=== PATIENT | male | born 1945 | race Caucasian/White ===

== ENCOUNTER 2020-04-23 14:22 | Emergency (ER) | payer MEDICARE, OTHER ==
[~2020-04-23] VITALS: Ht 187.9 cm; Wt 99.8 kg
[~2020-04-23 14:22] MED LIST: ASPI-587 PO; ATEN25TA PO; CIPR500T78 PO; FINA5TAB6 PO; IBUP200T48 PO; OMEP20TA2 PO; TRAM50TA2 PO
--- NOTE | 2020-04-23 15:04 | ED Upper Extremity ---
General Chief Complaint: Laceration Stated Complaint: LT THUMB LAC Nursing Triage Note: Patient reports he was using a table saw and cut the pad of his left thumb, bleeding controlled with pressure. Nursing Sepsis Screen: No Definite Risk Source: patient History of Present Illness Date Seen by Provider: Apr 23, 2020 Time Seen by Provider: 14:40 Initial Comments Patient is a 74-year-old right-handed male who presents with injury to left t humb pad. Patient has 2 deep ragged abrasion/lacerations to left thumb pad when it was caught in a band saw his prior to ED arrival. Tetanus is up-to-date. No other symptoms or complaints. Patient is a daily 81 mg aspirin but is any additional blood thinners. Onset: just prior to arrival Pain/Injury Location: left thumb Method of Injury: incised Modifying Factors: Improves With Other Allergies and Home Medications Allergies Coded Allergies: Sulfa (Sulfonamide Antibiotics) (Unverified Allergy, Unknown, RASH, 12/21/13) hydrocodone (Unverified Allergy, Unknown, NAUSEA, 12/21/13) latex (Unverified Allergy, Unknown, RASH, 12/21/13) Home Medications Atenolol 25 Mg Tablet, 25 MG PO DAILY, (Reported) Ciprofloxacin HCl 500 Mg Tablet, 500 MG PO DAILY, (Reported) Ibuprofen 200 Mg Tablet, 200 MG PO Q4H PRN for PAIN, (Reported) Omeprazole 20 Mg Tablet.dr, 20 MG PO DAILY, (Reported) Tramadol Hcl 50 Mg Tablet, 50 MG PO Q6H PRN for PAIN, (Reported) PRN PAIN Patient Home Medication List Home Medication List Reviewed: Yes Review of Systems Constitutional: no symptoms reported EENTM: no symptoms reported Respiratory: no symptoms reported Cardiovascular: no symptoms reported Gastrointestinal: no symptoms reported Musculoskeletal: no symptoms reported Skin: see HPI Psychiatric/Neurological: No Symptoms Reported All Other Systems Reviewed Negative Unless Noted: Yes Past Vokvuqz-Razjao-Onkjvz Hx Past Med/Social Hx: Reviewed Nursing Past Med/Soc Hx Patient Social History Alcohol Use: Denies Use Recreational Drug Use: No Smoking Status: Never a Smoker 2nd Hand Smoke Exposure: No Recent Foreign Travel: No Contact w/Someone Who Travel: No Recent Infectious Disease Expo: No Recent Hopitalizations: No Physical Abuse: No Sexual Abuse: No Mistreated: No Fear: No Immunizations Up To Date Date of Pneumonia Vaccine: Dec 24, 2011 Seasonal Allergies Seasonal Allergies: No Past Medical History Surgeries: Yes (BILAT HIP REPLACEMENTS, ) Respiratory: No Cardiac: Yes Hypertension Neurological: No Genitourinary: No Prostate Problems Gastrointestinal: Yes Gastroesophageal Reflux Musculoskeletal: Yes Arthritis Endocrine: No HEENT: No Cancer: No Psychosocial: No Integumentary: No Blood Disorders: No Adverse Reaction/Blood Tranf: No Family Medical History Alzheimer's disease 19 MOTHER Arthritis 19 MOTHER Cardiovascular disease 19 FATHER 19 MOTHER Dementia 19 MOTHER Diabetes mellitus 19 MOTHER Hypertension 19 MOTHER No Family History of: AIDS Asthma Cancer of mouth Colon cancer Completed stroke Drug abuse Dysphasia Kidney disease Myocardial infarction Osteoporosis Parkinson's disease Prostate cancer Psychosocial problem Respiratory disorder Seizure disorder Severe allergy Thyroid disease Tuberculosis Physical Exam Vital Signs Vital Signs - First Documented 04/23/20 14:23 Temp 36.7 Pulse 62 Resp 18 B/P (MAP) 172/95 (120) Pulse Ox 97 O2 Delivery Room Air Capillary Refill : Less Than 3 Seconds Height, Weight, BMI Height: 6'2.00" Weight: 214lbs. oz. 97.732913vd; 28.00 BMI Method: General Appearance: WD/WN HEENT: PERRL/EOMI Neck: full range of motion Cardiovascular: normal peripheral pulses Respiratory: lungs clear Back: normal inspection Shoulder: normal inspection Elbow/Forearm: normal inspection Wrist: Yes normal inspection Hand: Left (to deep abrasion/lacerations to left thumb pad. Both lacerations less than 1 cm. Do not involve the joint), abrasions Progress/Results/Core Measures Results/Orders Vital Signs/I&O 04/23/20 14:23 Temp 36.7 Pulse 62 Resp 18 B/P (MAP) 172/95 (120) Pulse Ox 97 O2 Delivery Room Air Blood Pressure Mean: 120 Departure Communication (Admissions) Wound repair procedure note: Location: Left thumb pad Finger tourniquet put into place. Wound cleanse please using copious tap water. Wound and dry, explored and closed with wound adhesive and bandaged applied. Tetanus status confirmed. Impression Primary Impression: Thumb laceration Disposition: 01 HOME, SELF-CARE Condition: Stable Departure-Patient Inst. Referrals: JACKIE MEDINA MD (PCP/Family) Primary Care Physician Patient Instructions: Laceration Repair With Glue (DC) Add. Discharge Instructions: Please keep wound clean and dry and avoid left hand/thumbs use. Return to the ED if signs of infection. All discharge instructions reviewed with patient and/or family. Voiced understanding. AFRICA LINDO DO Apr 23, 2020 15:04
[2020-04-23] MEDS ORDERED: TETANUS,DIPTH,PERTUSS P/F (BOOSTRIX) 0.5 ML VIAL IM ONE ×2 (15:16→15:30)
[2020-04-23 15:26] VITALS: BP 143/87
== END 2020-04-23 15:15 | disposition home or self-care (01) ==
LOC: EDUNIT# 14:22 → ER FS 14:23
DX: S61.012A Laceration without foreign body of left thumb without damage to nail, initial encounter (principal); K21.9 Gastro-esophageal reflux disease without esophagitis; I10 Essential (primary) hypertension; Z23 Encounter for immunization; Z88.2 Allergy status to sulfonamides; Z88.5 Allergy status to narcotic agent; Z91.040 Latex allergy status; Z82.49 Family history of ischemic heart disease and other diseases of the circulatory system; Z82.61 Family history of arthritis; Z83.3 Family history of diabetes mellitus; W31.2XXA Contact with powered woodworking and forming machines, initial encounter
CPT/HCPCS: 90715

== ENCOUNTER 2020-12-19 18:39 | Emergency (ER) | payer MEDICARE, OTHER ==
[~2020-12-19] VITALS: Ht 188 cm; Wt 96.2 kg
[2020-12-19] MEDS ORDERED: L.E.T. SOLUTION 3 ML SYR ONE (18:55)
[2020-12-19 19:03] VITALS: BP 195/104
--- NOTE | 2020-12-19 19:08 | ED Lower Extremity ---
General Chief Complaint: Laceration Stated Complaint: RT FOOT HEEL LAC Source: patient, family Exam Limitations: no limitations History of Present Illness Date Seen by Provider: Dec 19, 2020 Time Seen by Provider: 18:50 Initial Comments Here with report of bleeding from the right ankle. States he has area of dry skin to the medial aspect of the right ankle. He was walking around and the family noted that he had blood coming out of his shoe. When he stood there blood started to pool. They did take the shoe off and wrapped the wound and he came here for further evaluation. On arrival, he has Jordan wrap over paper towel dressings to area of medial right ankle. Bleeding controlled. Onset: just prior to arrival Method of Injury: unknown Modifying Factors: Improves With Rest, Improves With Other (dressing applied and resolved bleeding) Allergies and Home Medications Allergies Coded Allergies: Sulfa (Sulfonamide Antibiotics) (Unverified Allergy, Unknown, RASH, 12/21/13) hydrocodone (Unverified Allergy, Unknown, NAUSEA, 12/21/13) latex (Unverified Allergy, Unknown, RASH, 12/21/13) Patient Home Medication List Home Medication List Reviewed: Yes Atenolol (Tenormin 25 Mg) 25 Mg Tablet, 25 MG PO DAILY, (Reported) Entered as Reported by: RITO POLK on 12/21/13 1221 Ciprofloxacin HCl (Cipro) 500 Mg Tablet, 500 MG PO DAILY, (Reported) Entered as Reported by: RITO POLK on 12/21/13 1221 Ibuprofen (Ibuprofen) 200 Mg Tablet, 200 MG PO Q4H PRN for PAIN, (Reported) Entered as Reported by: ZE VANN on 12/24/13 0852 Omeprazole (Omeprazole) 20 Mg Tablet.dr, 20 MG PO DAILY, (Reported) Entered as Reported by: RITO POLK on 12/21/13 1221 Tramadol Hcl (Tramadol Hcl) 50 Mg Tablet, 50 MG PO Q6H PRN for PAIN, (Reported) Entered as Reported by: RITO POLK on 12/21/13 1221 Review of Systems Constitutional: No chills, No fever Respiratory: no symptoms reported Cardiovascular: no symptoms reported Skin: see HPI Psychiatric/Neurological: No Symptoms Reported Past Mofqlkc-Wiukxj-Revgbq Hx Patient Social History Tobacco Use?: No Substance use?: No Alcohol Use?: No Seasonal Allergies Seasonal Allergies: No Past Medical History Surgeries: Yes (BILAT HIP REPLACEMENTS, ) Orthopedic Respiratory: No Cardiac: Yes Hypertension Neurological: No Genitourinary: No Prostate Problems Gastrointestinal: Yes Gastroesophageal Reflux Musculoskeletal: Yes Arthritis Endocrine: No HEENT: No Cancer: No Psychosocial: No Integumentary: No Blood Disorders: No Adverse Reaction/Blood Tranf: No Family Medical History Reviewed Nursing Family Hx Alzheimer's disease 19 MOTHER Arthritis 19 MOTHER Cardiovascular disease 19 FATHER 19 MOTHER Dementia 19 MOTHER Diabetes mellitus 19 MOTHER Hypertension 19 MOTHER No Family History of: AIDS Asthma Cancer of mouth Colon cancer Completed stroke Drug abuse Dysphasia Kidney disease Myocardial infarction Osteoporosis Parkinson's disease Prostate cancer Psychosocial problem Respiratory disorder Seizure disorder Severe allergy Thyroid disease Tuberculosis Physical Exam Vital Signs Vital Signs - First Documented 12/19/20 12/19/20 19:03 19:46 Temp 36.6 Pulse 78 Resp 16 B/P (MAP) 195/104 (134) Pulse Ox 96 O2 Delivery Room Air Capillary Refill : Height, Weight, BMI Height: 6'2.00" Weight: 214lbs. oz. 97.402805ql; 28.00 BMI Method: General Appearance: WD/WN, no apparent distress Cardiovascular: regular rate, rhythm, no murmur Respiratory: lungs clear, normal breath sounds Ankles: right ankle other (Area of dry skin to medial ankle. Varicose veins noted. Site of bleeding controlled but overlies varicose vein. ) Neurologic/Psychiatric: alert, oriented x 3 Skin: normal color, warm/dry Progress/Results/Core Measures Results/Orders Medications Given in ED Current Medications Medications Dose Ordered Sig/Zhane Route Start Time Stop Time Status Last Admin Dose Admin Tetracaine/ Epinephrine/ Lidocaine 3 ml STK-MED ONCE .ROUTE 12/19/20 18:55 12/19/20 18:59 DC 12/19/20 19:00 3 ML Vital Signs/I&O 12/19/20 12/19/20 19:03 19:46 Temp 36.6 Pulse 78 66 Resp 16 16 B/P (MAP) 195/104 (134) Pulse Ox 96 O2 Delivery Room Air Room Air Progress Progress Note : Progress Note Seen and evaluated. Bleeding currently controlled. Concern for rebleed due to proximity of varicose vein. LET applied to area. We will use silver nitrate to area of concern to prevent rebleeding. This was discussed with the patient who prefers this approach. Discharged home after silver nitrate treatment. No rebleeding. Covered with antibiotic ointment and dressing and secured with Santiago gauze. Return precautions given. Patient verbalized understanding of ins tructions and agreement with plan. Departure Impression Primary Impression: Bleeding from varicose veins of right lower extremity Disposition: HOME, SELF-CARE Condition: Improved Departure-Patient Inst. Decision time for Depature: 19:11 Referrals: JACKIE MEDINA MD (PCP/Family) Primary Care Physician Patient Instructions: Varicose Veins (DC) Add. Discharge Instructions: All discharge instructions reviewed with patient and/or family. Voiced understanding. Use antibiotic ointment to area of concern daily. Use dressing and wrap over wound for the next several days then as needed. Follow up with your doctor recheck and further evaluation this week. Return for worse pain, fever, s welling, bleeding or other concerns as needed. LOGAN RITTER MD Dec 19, 2020 19:08
== END 2020-12-19 19:46 | disposition home or self-care (01) ==
LOC: EDUNIT# 18:39 → ER FS 18:40
DX: I83.891 Varicose veins of right lower extremity with other complications (principal); I10 Essential (primary) hypertension; K21.9 Gastro-esophageal reflux disease without esophagitis; Z79.899 Other long term (current) drug therapy
CPT/HCPCS: 99281

== ENCOUNTER → 2021-12-21 | Outpatient (CLI) | payer MEDICARE, OTHER ==
--- NOTE | 2021-12-21 14:17 | Diagnostic Imaging Report ---
PROCEDURE: CT abdomen and pelvis without contrast. TECHNIQUE: Multiple contiguous axial images were obtained through the abdomen and pelvis without the use of intravenous contrast. Auto Exposure Controls were utilized during the CT exam to meet ALARA standards for radiation dose reduction. INDICATION: Nephrolithiasis. FINDINGS: There is some chronic appearing interstitial scarring and fibrosis in the lung bases. There is cardiomegaly. The liver is normal in size without focal lesions. There is cholelithiasis. There is no biliary ductal dilatation. Spleen is normal. Pancreas and adrenal glands are unremarkable. There are several tiny punctate nonobstructing stones in the right kidney. There is a left renal cyst. There is no obstructive uropathy. The aorta is nonaneurysmal. There is atherosclerotic calcification at the base of the celiac axis and superior mesenteric artery. The bowel gas pattern is nonspecific. There is atherosclerotic calcification of the aorta which is nonaneurysmal. There is no free air. There is no ascites. There are no focal inflammatory changes. There is some diverticular disease. 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 There are degenerative changes in the spine. IMPRESSION: Cardiomegaly and some interstitial scarring and fibrosis in the lung bases. Cholelithiasis. Several tiny punctate nonobstructing stones in the right kidney as well as a left renal cyst. Atherosclerotic calcification of the aorta as well as at the ostia of the celiac axis and superior mesenteric artery. Diverticular disease without evidence of diverticulitis. Dictated by: Dictated on workstation # [id number]
--- NOTE | 2021-12-21 18:48 | Diagnostic Imaging Report ---
INDICATION: Gross hematuria and history of nephrolithiasis. FINDINGS: There are degenerative changes in the spine. The bowel gas pattern is nonspecific. There are no abnormal abdominal calcifications. There are postsurgical changes of bilateral hip arthroplasty. IMPRESSION: Nonspecific bowel gas pattern. No obvious abnormal stones. Degenerative changes in the spine and previous bilateral hip arthroplasties. Dictated by: Dictated on workstation # [id number]
== END ==
LOC: RAD FS 12:35
PROVIDERS: ATTEND Urology
DX: N20.0 Calculus of kidney (principal); I51.7 Cardiomegaly; J84.10 Pulmonary fibrosis, unspecified; K80.20 Calculus of gallbladder without cholecystitis without obstruction; N28.1 Cyst of kidney, acquired; K57.90 Diverticulosis of intestine, part unspecified, without perforation or abscess without bleeding; I70.0 Atherosclerosis of aorta
CPT/HCPCS: 74018; 74176

== ENCOUNTER 2022-01-19 21:27 | Emergency (ER) | payer MEDICARE, OTHER ==
[~2022-01-19] VITALS: Ht 188 cm; Wt 100.0 kg
[2022-01-19 21:30] VITALS: BP 166/80
--- NOTE | 2022-01-19 21:41 | ED GI ---
General Stated Complaint: PAINFUL URINATION Source of Information: Patient Exam Limitations: No Limitations History of Present Illness Date Seen by Provider: Jan 19, 2022 Time Seen by Provider: 21:30 Initial Comments 76-year-old male with past medical history of hypertension and BPH coming in due to difficulty urinating. He has had increasing difficulty urinating over the past month and a half. Over dinner tonight he had to urinate 5 times in less than 40 minutes. Since being in the ER he has had to go twice in a few short minutes. He denies any real burning, just that he has the urge to continue to need to go. He does continue to get urine out every time he goes to the bathroom. He feels suprapubic pressure and discomfort which is constant, moderate, and slightly improved after urinating. Denies any fever, nausea, vomiting, flank pain, diarrhea, rash, or any other concerns. He does follow with Dr. Romano already for his prostate and has an appointment in a week and a half. Allergies and Home Medications Allergies Coded Allergies: Sulfa (Sulfonamide Antibiotics) (Unverified Allergy, Unknown, RASH, 12/21/13) hydrocodone (Unverified Allergy, Unknown, NAUSEA, 12/21/13) latex (Unverified Allergy, Unknown, RASH, 12/21/13) Patient Home Medication List Home Medication List Reviewed: Yes Atenolol (Tenormin 25 Mg) 25 Mg Tablet, 25 MG PO DAILY, (Reported) Entered as Reported by: RITO POLK on 12/21/13 1221 Ciprofloxacin HCl (Cipro) 500 Mg Tablet, 500 MG PO DAILY, (Reported) Entered as Reported by: RITO POLK on 12/21/13 1221 Ibuprofen (Ibuprofen) 200 Mg Tablet, 200 MG PO Q4H PRN for PAIN, (Reported) Entered as Reported by: ZE VANN on 12/24/13 0852 Omeprazole (Omeprazole) 20 Mg Tablet., 20 MG PO DAILY, (Reported) Entered as Reported by: RITO POLK on 12/21/13 1221 Tramadol Hcl (Tramadol Hcl) 50 Mg Tablet, 50 MG PO Q6H PRN for PAIN, (Reported) Entered as Reported by: RITO POLK on 12/21/13 1221 Review of Systems Review of Systems Constitutional: No fever EENTM: No Symptoms Reported Respiratory: No Symptoms Reported Cardiovascular: No Symptoms Reported Gastrointestinal: No Symptoms Reported Genitourinary: See HPI Musculoskeletal: no symptoms reported Skin: no symptoms reported Psychiatric/Neurological: No Symptoms Reported Endocrine: No Symptoms Reported Hematologic/Lymphatic: No Symptoms Reported All Other Systems Reviewed Negative Unless Noted: Yes Past Jwryixp-Cgvslm-Xdseac Hx Patient Social History Tobacco Use?: No Smoking Status: Former Smoker Immunizations Up To Date First/Initial COVID19 Vaccinat: 05/2020 Second COVID19 Vaccination Homero: 06/2020 Seasonal Allergies Seasonal Allergies: No Past Medical History Surgeries: Yes (BILAT HIP REPLACEMENTS, ) Orthopedic Respiratory: No Cardiac: Yes Hypertension Neurological: No Genitourinary: No Prostate Problems Gastrointestinal: Yes Gastroesophageal Reflux Musculoskeletal: Yes Arthritis Endocrine: No HEENT: No Cancer: No Psychosocial: No Integumentary: No Blood Disorders: No Adverse Reaction/Blood Tranf: No Family Medical History Alzheimer's disease 19 MOTHER Arthritis 19 MOTHER Cardiovascular disease 19 FATHER 19 MOTHER Dementia 19 MOTHER Diabetes mellitus 19 MOTHER Hypertension 19 MOTHER No Family History of: AIDS Asthma Cancer of mouth Colon cancer Completed stroke Drug abuse Dysphasia Kidney disease Myocardial infarction Osteoporosis Parkinson's disease Prostate cancer Psychosocial problem Respiratory disorder Seizure disorder Severe allergy Thyroid disease Tuberculosis Physical Exam Vital Signs Vital Signs - First Documented 01/19/22 21:30 Temp 36.8 Pulse 86 Resp 18 B/P (MAP) 166/80 (108) Capillary Refill : Height/Weight/BMI Height: 6'2.00" Weight: 214lbs. oz. 97.525698eq; 27.00 BMI Method: General Appearance: WD/WN, no apparent distress HEENT: PERRL/EOMI, normal ENT inspection, pharynx normal Neck: non-tender, full range of motion, supple, normal inspection Respiratory: chest non-tender, lungs clear, normal breath sounds, no respiratory distress, no accessory muscle use Cardiovascular: regular rate, rhythm, no edema, no murmur Gastrointestinal: normal bowel sounds, non tender, tenderness (suprapubic fullness and discomfort) Extremities: normal range of motion, non-tender, normal inspection, no pedal edema, no calf tenderness Back: normal inspection, no CVA tenderness Neurologic/Psychiatric: no motor/sensory deficits, alert, normal mood/affect Skin: normal color, warm/dry Lymphatic: no adenopathy Progress/Results/Core Measures Results/Orders Lab Results Laboratory Tests Test 01/19/22 21:38 Range/Units Urine Color YELLOW Urine Clarity SLIGHTLY CLOUDY Urine pH 5.5 5-9 Urine Specific [place] <=1.005 1.016-1.022 Urine Protein NEGATIVE NEGATIVE Urine Glucose (UA) NEGATIVE NEGATIVE Urine Ketones NEGATIVE NEGATIVE Urine Nitrite NEGATIVE NEGATIVE Urine Bilirubin NEGATIVE NEGATIVE Urine Urobilinogen 0.2 < = 1.0 MG/DL Urine Leukocyte Esterase 1+ H NEGATIVE Urine RBC (Auto) TRACE-I H NEGATIVE Urine RBC 0-2 /HPF Urine WBC 25-50 H /HPF Urine Squamous Epithelial Cells RARE /HPF Urine Crystals PRESENT H /LPF Urine Amorphous Sediment FEW CECE URATES H /LPF Urine Bacteria FEW H /HPF Urine Casts NONE /LPF Urine Mucus NEGATIVE /LPF Urine Culture Indicated YES My Orders Orders - JOE JARRETT MD Ua Culture If Indicated (01/19/22 21:31) Catheter(Urinary) Insert & Ass 03,15 (01/19/22 21:37) Lidocaine 2% (Urojet) (Xylocaine Urojet) (01/19/22 21:45) Urine Culture (01/19/22 21:38) Medications Given in ED Current Medications Medications Dose Ordered Sig/Zhane Route Start Time Stop Time Status Last Admin Dose Admin Lidocaine HCl 10 ml ONCE ONCE TOP 01/19/22 21:45 01/19/22 21:46 DC 01/19/22 21:54 10 ML Vital Signs/I&O 01/19/22 21:30 Temp 36.8 Pulse 86 Resp 18 B/P (MAP) 166/80 (108) Progress Progress Note : Progress Note 76-year-old male with above history coming in due to urinary urgency. ABCs were intact and vitals were stable on presentation. Physical exam with some suprapubic fullness and discomfort. Postvoid residual with over a liter of urine on ultrasound performed by me. Saldaña catheter was then placed and urinalysis was sent for evaluation. He has follow-up with the urologist already in just over a week. Of note, the patient's urinalysis did look potentially infectious. He recently started on Macrobid per Dr. Romano, so I will not change the prescription. Departure Impression Primary Impression: Urinary retention Additional Impression: Saldaña catheter in place Disposition: 01 HOME, SELF-CARE Condition: Improved Departure-Patient Inst. Decision time for Depature: 22:16 Referrals: JACKIE MEDINA MD (PCP/Family) Primary Care Physician VANNA ROMANO MD Patient Instructions: Urinary Retention (DC), How to Care for Your Saldaña Catheter, Male Add. Discharge Instructions: Follow-up with Dr. Romano in the next week or so to discuss how to get the Saldaña out and what you can do to prevent this from happening in the future. JOE JARRETT MD Jan 19, 2022 21:41
[2022-01-19 21:43] LABS: BILIRUBIN,URINE NEGATIVE (NEGATIVE); COLOR,URINE YELLOW; GLUCOSE, URINE (UA) NEGATIVE (NEGATIVE); KETONES,URINE NEGATIVE (NEGATIVE); LEUKOCYTE ESTERASE ,URINE 1+ (NEGATIVE); NITRITE,URINE NEGATIVE (NEGATIVE); PH,URINE 5.5 (5-9); PROTEIN,URINE NEGATIVE (NEGATIVE)
[2022-01-19] MEDS ORDERED: LIDOCAINE UROJET 2% GEL 10 ML PKG TOP ONE (21:45)
[2022-01-19 21:50] LABS: AMORPHOUS SEDIMENT,UR FEW AMOR URATES /LPF; BACTERIA,URINE FEW /HPF; CLARITY,URINE SLIGHTLY CLOUDY; RBC,URINE 0-2 /HPF; SQUAMOUS EPITHELIAL CELL,UR RARE /HPF; WBC,URINE 25-50 /HPF
== END 2022-01-19 22:31 | disposition home or self-care (01) ==
LOC: EDUNIT# 21:27 → ER FS 21:28
DX: R33.9 Retention of urine, unspecified (principal); Z46.6 Encounter for fitting and adjustment of urinary device; Z87.891 Personal history of nicotine dependence
CPT/HCPCS: 51702; 81000; 87088

== ENCOUNTER 2022-11-11 07:45 | Emergency (ER) | payer MEDICARE, OTHER ==
[~2022-11-11] VITALS: Ht 187.9 cm; Wt 98.6 kg
--- NOTE | 2022-11-11 08:00 | ED Fall/Injury ---
General Chief Complaint: Chest Wall Stated Complaint: LEFT SIDE RIBS Source: patient History of Present Illness Date Seen by Provider: Nov 11, 2022 Time Seen by Provider: 07:46 Initial Comments 77-year-old male presenting with complaints of pain to the left anterior lower ribs. He reports that on Saturday he was out watering the yard and slipped on a rock. He landed on the yard and had some pain to the left side. He thought that he was doing okay but then overnight he felt like something was moving and shifting in his ribs. He took some Tylenol around 330 this morning. He states if he is just sitting there the pain is a 0 but when he takes a deep breath, sneezes, coughs his pain shoots up at least to a 5 out of 10. He denies having any head injury or loss of consciousness. He does not feel short of breath. He denies any abdominal pain. No fever, chills, hemoptysis. Occurred: other (fell in yard on 11/07 while watering) Severity: moderate Injuries/Pain Location: chest (left anterior lower chest wall) Context: slipped Loss of Consciousness: no loss of consciousness Modifying Factors: Worse With Movement (deep breaths) Associated Symptoms (Fall): No Abdominal Pain, No Confusion, No Dizziness, No Headache, No Lightheadedness, No Muscle Spasms, No Nausea/Vomiting, No Neck Pain, No Ringing in Ears, No Seizures, No Shortness of Air, No Slurred Speech, No Trouble Walking, No Vision Changes Allergies and Home Medications Allergies Coded Allergies: Sulfa (Sulfonamide Antibiotics) (Unverified Allergy, Unknown, RASH, 12/21/13) hydrocodone (Unverified Allergy, Unknown, NAUSEA, 12/21/13) latex (Unverified Allergy, Unknown, RASH, 12/21/13) Patient Home Medication List Home Medication List Reviewed: Yes Atenolol (Tenormin 25 Mg) 25 Mg Tablet, 25 MG PO DAILY, (Reported) Entered as Reported by: RITO POLK on 12/21/13 1221 Ciprofloxacin HCl (Cipro) 500 Mg Tablet, 500 MG PO DAILY, (Reported) Entered as Reported by: RITO POLK on 12/21/13 1221 Ibuprofen (Ibuprofen) 200 Mg Tablet, 200 MG PO Q4H PRN for PAIN, (Reported) Entered as Reported by: ZE VANN on 12/24/13 0852 Omeprazole (Omeprazole) 20 Mg Tablet.dr, 20 MG PO DAILY, (Reported) Entered as Reported by: RITO POLK on 12/21/13 1221 Tramadol Hcl (Tramadol Hcl) 50 Mg Tablet, 50 MG PO Q6H PRN for PAIN, (Reported) Entered as Reported by: RITO POLK on 12/21/13 1221 Review of Systems Review of Systems Constitutional: No chills, No fever Eyes: No Symptoms Reported Ears, Nose, Mouth, Throat: no symptoms reported Respiratory: see HPI Cardiovascular: see HPI Gastrointestinal: no symptoms reported Genitourinary: no symptoms reported Musculoskeletal: see HPI Skin: No change in color Psychiatric/Neurological: No Symptoms Reported Past Hgfenbw-Svolms-Rdzcqt Hx Patient Social History Tobacco Use?: No Smoking Status: Former Smoker Use of E-Cig and/or Vaping dev: No Substance use?: No Alcohol Use?: No Immunizations Up To Date First/Initial COVID19 Vaccinat: 05/2020 Second COVID19 Vaccination Homero: 06/2020 Third COVID19 Vaccination Date: 05/2020 Seasonal Allergies Seasonal Allergies: No Past Medical History Surgery/Hospitalization HX: Hypertension, GERD, BPH Surgeries: Yes (BILAT HIP REPLACEMENTS, ) Orthopedic Respiratory: No Cardiac: Yes Hypertension Neurological: No Genitourinary: No Prostate Problems Gastrointestinal: Yes Gastroesophageal Reflux Musculoskeletal: Yes Arthritis Endocrine: No HEENT: No Cancer: No Psychosocial: No Integumentary: No Blood Disorders: No Adverse Reaction/Blood Tranf: No Family Medical History Alzheimer's disease 19 MOTHER Arthritis 19 MOTHER Cardiovascular disease 19 FATHER 19 MOTHER Dementia 19 MOTHER Diabetes mellitus 19 MOTHER Hypertension 19 MOTHER No Family History of: AIDS Asthma Cancer of mouth Colon cancer Completed stroke Drug abuse Dysphasia Kidney disease Myocardial infarction Osteoporosis Parkinson's disease Prostate cancer Psychosocial problem Respiratory disorder Seizure disorder Severe allergy Thyroid disease Tuberculosis Physical Exam Vital Signs Vital Signs - First Documented 11/11/22 07:48 Temp 36.4 Pulse 85 Resp 14 B/P (MAP) 175/86 (115) O2 Delivery Room Air Capillary Refill : Height, Weight, BMI Height: 6'2.00" Weight: 214lbs. oz. [id number]; 28.00 BMI Method: General Appearance: WD/WN, no apparent distress Cardiovascular: normal peripheral pulses, regular rate, rhythm Respiratory: No chest non-tender (tender to palpation left anterior lower ribs without crepitus or step off noted.); lungs clear, normal breath sounds, no respiratory distress, no accessory muscle use Gastrointestinal: normal bowel sounds, non tender, soft, no pulsatile mass Rectal: deferred Extremities: normal range of motion, non-tender, normal capillary refill Neurologic/Psychiatric: eye glass frame polisher II-XII nml as tested, no motor/sensory deficits, alert, normal mood/affect, oriented x 3 Skin: normal color, warm/dry; No ecchymosis [place] Coma Score Best Eye Response: (4) Open Spontaneously Best Verbal Response: (5) Oriented Best Motor Response: (6) Obeys Commands [place] Total: 15 Progress/Results/Core Measures Results/Orders My Orders Orders - SHAHAB MURPHY MD Ribs/Unilateral With Chest (11/11/22 07:54) Vital Signs/I&O 11/11/22 11/11/22 07:48 08:48 Temp 36.4 36.4 Pulse 85 85 Resp 14 14 B/P (MAP) 175/86 (115) 175/86 O2 Delivery Room Air Room Air Progress Progress Note #1: Progress Note Potential diagnosis of rib contusion, rib fracture, pneumothorax, hemothorax, musculoskeletal chest wall strain. As patient had taken some Tylenol for pain at 330 this morning and did not have pain and was he was doing deep breaths will defer additional pain medicine for now. Obtain rib and chest x-ray to look for signs of acute fracture or pathology with his lungs or ribs. Progress Note #2: Time: 08:09 Progress Note On my personal interpretation and review of the films of the left ribs and chest x-ray he has at least 1 rib fracture on the left side. It looks like the seventh rib had fracture with minimal separation. I did not appreciate a pneumothorax or hemothorax. Will counselling psychologist patient about lidocaine numbing patches and using Tylenol. Use a pillow to help splint to side so he can take deep breaths. Patient states he already has an incentive spirometer at home so encouraged him to use that to make sure he is taking deep breaths. Advised to use a pillow for something soft to help splint the side when he was using it to take deep breaths to help prevent pneumonia. Encouraged that he can take acetaminophen and/or ibuprofen if needed for pain as well as [id number] lidocaine numbing patches. Encouraged to check back with primary care for continued concerns. Counseled on follow-up and return precautions. Diagnostic Imaging Diagonstic Imaging: Xray Plain Films/CT/US/NM/MRI: chest (With left ribs) Comments [facility], [place] NAME: BRIANA BLANCO [facility] REC#: [id number] PT STATUS: REG ER : 1945 PHYSICIAN: SHAHAB MURPHY MD ADMIT DATE: 11/11/22/ER FS Signed Date of Exam:11/11/22 RIBS/UNILATERAL WITH CHEST Patient History: Fall. Left-sided rib pain.. Technique: 5 views of the chest and left ribs. Comparison: None. FINDINGS: The lung volumes are normal. No focal consolidation is seen. No large pleural effusion or pneumothorax is seen. The cardiomediastinal silhouette is normal in size and contour. There is calcified aortic atherosclerotic plaque. No acute osseous abnormality is seen. No acute displaced left-sided rib fractures. IMPRESSION: 1. No acute process in the chest. 2. No acute displaced left-sided rib fractures. Dictated by: Dictated on workstation # [id number] Dict: 11/11/22820 Trans: 11/11/22826 [facility] [id number] Interpreted by: EDVIN TALBOT DO Electronically signed by: EDVIN TALBOT DO 11/11/22826 ADDENDUM REPORT ADDENDUM: Please change the findings and impression to read: Patient History: Fall. Left-sided rib pain.. Technique: 5 views of the chest and left ribs. Comparison: None. FINDINGS: The lung volumes are normal. No focal consolidation is seen. No large pleural effusion or pneumothorax is seen. The cardiomediastinal silhouette is normal in size and contour. There is calcified aortic atherosclerotic plaque. Minimally displaced fracture seen involving the lateral aspect of the left 7th rib. IMPRESSION: 1. Minimally displaced fracture involving the lateral aspect of the left 7th rib. No pneumothorax or pleural effusion. Findings were discussed with Dr. Murphy at 8:35 AM on 11/11/[address] Edvin Talbot. Dictated by: Dictated on workstation # [id number] Interpreted by: EDVIN TALBOT DO Electronically signed by: EDVIN TALBOT DO 11/11/22 0837 Reviewed: Reviewed by Me, Discussed w/Radiologist (0835 d/w Dr. Talbot and he agreed that there could be a minimally displaced fracture of the left 7th rib. ) Departure Impression Primary Impression: Left rib fracture Qualified Codes: S22.32XA - Fracture of one rib, left side, initial encounter for closed fracture Additional Impressions: Contusion of left front wall of thorax, initial encounter Contusion of rib on left side Qualified Codes: S20.212A - Contusion of left front wall of thorax, initial encounter Disposition: HOME, SELF-CARE Condition: Stable Departure-Patient Inst. Decision time for Depature: 08:46 Referrals: JACKIE MEDINA MD (PCP/Family) Primary Care Physician Patient Instructions: Rib Fracture or Bruised Rib ED, Minor Contusion ED Add. Discharge Instructions: You may continue to take Acetaminophen if needed for pain. Consider a Lidocaine numbing patch over the tender area of your ribs. Over the counter a brand name option for this is SalonPas. You could try alternating ice and heat to your left chest wall to try and help with pain and inflammation. Try to use a pillow or something soft to splint against your side when you are taking deep breaths, coughing or have to sneeze. This will help it not hurt so bad. Check back with primary care provider for continued concerns. All discharge instructions reviewed with patient and/or family. Voiced understanding. SHAHAB MURPHY MD Nov 11, 2022 08:00
--- NOTE | 2022-11-11 08:24 | Diagnostic Imaging Report ---
Patient History: Fall. Left-sided rib pain.. Technique: 5 views of the chest and left ribs. Comparison: None. FINDINGS: The lung volumes are normal. No focal consolidation is seen. No large pleural effusion or pneumothorax is seen. The cardiomediastinal silhouette is normal in size and contour. There is calcified aortic atherosclerotic plaque. No acute osseous abnormality is seen. No acute displaced left-sided rib fractures. IMPRESSION: 1. No acute process in the chest. 2. No acute displaced left-sided rib fractures. Dictated by: Dictated on workstation # [id number]
[2022-11-11 08:48] VITALS: BP 175/86
== END 2022-11-11 08:48 | disposition home or self-care (01) ==
LOC: EDUNIT# 07:45 → ER FS 07:47
DX: S22.32XA Fracture of one rib, left side, initial encounter for closed fracture (principal); S20.212A Contusion of left front wall of thorax, initial encounter; Z91.040 Latex allergy status; Z87.891 Personal history of nicotine dependence; W01.0XXA Fall on same level from slipping, tripping and stumbling without subsequent striking against object, initial encounter; Y93.H2 Activity, gardening and landscaping; Y92.096 Garden or yard of other non-institutional residence as the place of occurrence of the external cause
CPT/HCPCS: 71101